=== PATIENT | female | born 2000 | race Caucasian/White ===

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

== ENCOUNTER 2018-12-31 08:29 | Outpatient (RCR) | payer BC | END 2019-01-29 12:20 | disposition home or self-care (01) | DX: M25.552 Pain in left hip (principal) ==

== ENCOUNTER 2021-12-16 08:27 | Outpatient (RCR) | payer BC, OTHER | END 2022-01-11 | disposition home or self-care (01) | PROVIDERS: ATTEND Family Medicine Sports Medicine | DX: M46.1 Sacroiliitis, not elsewhere classified (principal) ==